=== PATIENT | male | born 1995 | race Caucasian/White ===

== ENCOUNTER 2019-05-13 10:43 | Emergency (ER) | payer BC ==
[2019-05-13 10:55] VITALS: BP 149/89
--- NOTE | 2019-05-13 11:32 | UC ---
Throat Pain/Nasal Beot HPI - HPI Summary HPI Summary: started with ST 5 days ago, seems worse today and Rear hurts now, also has sinus congestion that is worse today, no cough - History of Current Complaint Chief Complaint: UCGeneralIllness Stated Complaint: SORE THROAT Time Seen by Provider: 05/13/19 11:02 Hx Obtained From: Patient Onset/Duration: Gradual Onset Severity: Moderate Pain Intensity: 4 Cough: None Associated Signs & Symptoms: Positive: Sinus Discomfort, Nasal Discharge - Allergies/Home Medications Allergies/Adverse Reactions: Allergies Allergy/AdvReac Type Severity Reaction Status Date / Time No Known Allergies Allergy Verified 05/13/19 10:55 Home Medications: Home Medications Ibuprofen 600 mg PO DAILY WITH MEAL 05/13/19 [History Confirmed 05/13/19] PMH/Surg Hx/FS Hx/Imm Hx Previously Healthy: Yes - Surgical History Surgical History: Yes - Family History Known Family History: Positive: None - Social History Occupation: Employed Full-time Lives: With Family Alcohol Use: Weekly Substance Use Type: Marijuana Smoking Status (MU): Never Smoked Tobacco Cessation Counseling: Patient Advised to Stop Review of Systems All Other Systems Reviewed And Are Negative: Yes Constitutional: Positive: Negative Skin: Positive: Negative. Negative: Rash Eyes: Positive: Negative ENT: Positive: Sore Throat, Ear Ache, Nasal Discharge, Sinus Congestion, Sinus Pain/Tenderness Respiratory: Positive: Negative. Negative: Cough Cardiovascular: Positive: Negative Gastrointestinal: Positive: Negative Neurological: Positive: Negative. Negative: Headache Psychological: Positive: Negative Is Patient Immunocompromised?: No Physical Exam Triage Information Reviewed: Yes Appearance: Well-Appearing, Well-Nourished, Obese Vital Signs: Initial Vital Signs Temp 97.9 F 05/13/19 10:51 Pulse 88 05/13/19 10:51 Resp 18 05/13/19 10:51 BP 149/89 05/13/19 10:51 Pulse Ox 99 05/13/19 10:51 Vital Signs Reviewed: Yes ENT: Positive: Pharyngeal erythema, Nasal congestion, TM dull - R TM with serous OM Respiratory Exam: Normal Respiratory: Positive: Lungs clear Cardiovascular Exam: Normal Cardiovascular: Positive: RRR Neurological Exam: Normal Psychological Exam: Normal Skin Exam: Normal Throat Pain/Nasal Course/Dx - Differential Dx/Diagnosis Differential Diagnosis/HQI/PQRI: Influenza, Otitis Media, Pharyngitis, Sinusitis , Tonsillitis, URI Provider Diagnosis: Sinusitis, Otitis, serous Discharge ED - Sign-Out/Discharge Documenting (check all that apply): Patient Departure All imaging exams completed and their final reports reviewed: No Studies - Discharge Plan Condition: Good Disposition: HOME Prescriptions: Cefdinir cap* [Cefdinir 300 MG cap (NF)] 300 mg PO BID #20 cap Patient Education Materials: Sinusitis (ED) Referrals: No Primary Care Phys,NOPCP [Primary Care Provider] - Additional Instructions: drink plenty of fluids and rest start antibiotic and take as directed - Billing Disposition and Condition Condition: GOOD Disposition: Home
== END 2019-05-13 11:40 | disposition home or self-care (01) ==
LOC: UCEAST 10:43
DX: H65.91 Unspecified nonsuppurative otitis media, right ear (principal); J32.9 Chronic sinusitis, unspecified
CPT/HCPCS: 87651; 99202; G0463